=== PATIENT | male | born 1960 | race Caucasian/White ===

== ENCOUNTER → 2017-01-22 | Outpatient (CLI) | payer OTHER ==
[~2017-01-22] VITALS: Ht 185.4 cm; Wt 90.7 kg
[~2017-01-22] MED LIST: BREO1INH INH; LIDOCAINE 2% INJ 100 MG/5 ML SDV (FOR ANES.) As Ordered ONE; NS 1,000 ML IV ONE; OMEP20CA3 PO; PROPOFOL 500 MG/50 ML VIAL As Ordered ONE
--- NOTE | 2017-01-22 09:25 | ROOR ---
Patient Name: Garrison Huynh Procedure Date: 01/22/2017 9:12 AM Date of : 1960 Age: 56 Room: [id number] Gender: Male Note Status: Finalized Procedure: Upper GI endoscopy Indications: Surveillance for malignancy due to personal history of Pan's esophagus, Esophageal reflux Providers: Garrison JJ MD Referring MD: AGUSTÍN NORIEGA MD Requesting Provider: Medicines: Monitored Anesthesia Care Complications: No immediate complications. Procedure: Pre-Anesthesia Assessment: - The heart rate, respiratory rate, oxygen saturations, blood pressure, adequacy of pulmonary ventilation, and response to care were monitored throughout the procedure. The Endoscope was introduced through the mouth, and advanced to the second part of duodenum. The upper GI endoscopy was accomplished without difficulty. The patient tolerated the procedure well. Findings: The Z-line was variable and was found 38 cm from the incisors. This was biopsied with a cold forceps for evaluation to rule out Pan's Esophagus. The exam was otherwise without abnormality. Impression: - Z-line variable, 38 cm from the incisors c/w short segment (<1 cm) barretts esophagus. Biopsied. - The examination was otherwise normal. Recommendation: - Continue present medications. - Repeat upper endoscopy in 3 - 5 years for surveillance. Garrison Jj MD Garrison JJ MD 01/22/2017 9:25:20 AM This report has been signed electronically. Number of Addenda: 0 Note Initiated On: 01/22/2017 9:12 AM Estimated Blood Loss: Estimated blood loss: none.
--- NOTE | 2017-01-22 09:37 | ROOR ---
Patient Name: Garrison Huynh Procedure Date: 01/22/2017 9:13 AM Date of : 1960 Age: 56 Room: [facility] Gender: Male Note Status: Finalized Procedure: Colonoscopy Indications: High risk colon cancer surveillance: Personal history of colonic polyps, Last colonoscopy: September 2014 Providers: Garrison JJ MD Referring MD: AGUSTÍN NORIEGA MD Requesting Provider: Medicines: Monitored Anesthesia Care Complications: No immediate complications. Procedure: Pre-Anesthesia Assessment: - The heart rate, respiratory rate, oxygen saturations, blood pressure, adequacy of pulmonary ventilation, and response to care were monitored throughout the procedure. The Colonoscope was introduced through the anus and advanced to the cecum, identified by appendiceal orifice and ileocecal valve. The colonoscopy was performed without difficulty. The patient tolerated the procedure well. The quality of the bowel preparation was good. Findings: The perianal and digital rectal examinations were normal. A 3 mm polyp was found in the sigmoid colon. The polyp was sessile. The polyp was removed with a cold snare. Resection and retrieval were complete. Multiple medium-mouthed diverticula were found in the sigmoid colon. Small Internal Hemorrhoids. The exam was otherwise without abnormality on direct and retroflexion views. Impression: - One 3 mm polyp in the sigmoid colon, removed with a cold snare. Resected and retrieved. - Mild diverticulosis in the sigmoid colon. - Small Internal Hemorrhoids. - The examination was otherwise normal on direct and retroflexion views. Recommendation: - Repeat colonoscopy in 5 years for surveillance. aGrrison Jj MD Garrison JJ MD 01/22/2017 9:37:08 AM This report has been signed electronically. Number of Addenda: 0 Note Initiated On: 01/22/2017 9:13 AM Estimated Blood Loss: Estimated blood loss: none.
[2017-01-22 09:53] VITALS: BP 128/79
== END ==
LOC: M OPP 08:38
PROVIDERS: ATTEND Internal Medicine Gastroenterology
DX: Z12.11 Encounter for screening for malignant neoplasm of colon (principal); Z86.010 Personal history of colon polyps; D12.5 Benign neoplasm of sigmoid colon; K57.30 Diverticulosis of large intestine without perforation or abscess without bleeding; K64.8 Other hemorrhoids; K22.70 Barrett's esophagus without dysplasia; K21.9 Gastro-esophageal reflux disease without esophagitis; K22.8 Other specified diseases of esophagus; J45.909 Unspecified asthma, uncomplicated; R12 Heartburn; Z79.899 Other long term (current) drug therapy

== ENCOUNTER → 2020-05-29 | Outpatient (CLI) | payer OTHER ==
[~2020-05-29] MED LIST changes: +ALBU8.5H INH; +ATOR40TA75 PO; -LIDOCAINE 2% INJ 100 MG/5 ML SDV (FOR ANES.) As Ordered ONE; +LOSA50TA88 PO; +NIFE30TA50 PO; -NS 1,000 ML IV ONE; +OMEP-218 PO; +OMEP1CAP73 PO; -OMEP20CA3 PO; -PROPOFOL 500 MG/50 ML VIAL As Ordered ONE
== END ==
LOC: M LABSMTC 11:59
PROVIDERS: ATTEND Anesthesiology
DX: Z01.812 Encounter for preprocedural laboratory examination (principal); Z20.828 Contact with and (suspected) exposure to other viral communicable diseases

== ENCOUNTER 2020-06-03 12:28 | Day surgery (SDC) | payer OTHER ==
[~2020-06-03] VITALS: Ht 185.4 cm; Wt 88.9 kg
[~2020-06-03 12:28] MED LIST changes: +LIDOCAINE 2% 100MG/5ML SDV (FOR ANES.) As Ordered ONE; +NS 1,000 ML IV ONE; +propofoL 200 MG/20 ML VIAL As Ordered ONE
[2020-06-03] MEDS ORDERED: propofoL 200 MG/20 ML VIAL As Ordered ONE (14:32)
[2020-06-03 14:37] VITALS: BP 120/64
--- NOTE | 2020-06-03 14:38 | ROOR ---
Patient Name: Garrison Huynh Procedure Date: 06/03/2020 2:22 PM Date of : 1960 Age: 59 Room: [facility] Gender: Male Note Status: Finalized Procedure: Upper GI endoscopy Indications: Surveillance for malignancy due to personal history of Pan's esophagus Providers: Garrison JJ MD Referring MD: AGUSTÍN NORIEGA MD Requesting Provider: Medicines: Monitored Anesthesia Care Complications: No immediate complications. Procedure: Pre-Anesthesia Assessment: - The heart rate, respiratory rate, oxygen saturations, blood pressure, adequacy of pulmonary ventilation, and response to care were monitored throughout the procedure. The Endoscope was introduced through the mouth, and advanced to the second part of duodenum. The upper GI endoscopy was accomplished without difficulty. The patient tolerated the procedure well. Findings: The Z-line was variable and was found 39 cm from the incisors. Biopsies were taken with a cold forceps for histology. Small Hiatal Hernia. The exam was otherwise without abnormality. Impression: - Z-line variable, 39 cm from the incisors. Biopsied. - Small Hiatal Hernia. - The examination was otherwise normal. Recommendation: - Continue present medications. - Telephone endoscopist for pathology results in 2 weeks. - Repeat upper endoscopy for surveillance based on pathology results. Garrison Jj MD Garrison JJ MD 06/03/2020 2:37:21 PM Electronically signed by Garrison JJ MD Number of Addenda: 0 Note Initiated On: 06/03/2020 2:22 PM Estimated Blood Loss: Estimated blood loss: none.
== END 2020-06-03 15:27 | disposition home or self-care (01) ==
LOC: M OPP 12:28
PROVIDERS: ATTEND Internal Medicine Gastroenterology
DX: K22.8 Other specified diseases of esophagus (principal); K21.9 Gastro-esophageal reflux disease without esophagitis; K44.9 Diaphragmatic hernia without obstruction or gangrene; Z79.899 Other long term (current) drug therapy; Z87.891 Personal history of nicotine dependence

== ENCOUNTER → 2023-01-19 | Outpatient (CLI) | payer OTHER ==
[~2023-01-19] MED LIST changes: -LIDOCAINE 2% 100MG/5ML SDV (FOR ANES.) As Ordered ONE; +LOSA50TA28 PO; -LOSA50TA88 PO; -NS 1,000 ML IV ONE; +OMEP-173 PO; -OMEP-218 PO; -propofoL 200 MG/20 ML VIAL As Ordered ONE
[2023-01-19 15:02] LABS: BASO # 0.1 10^3/uL (0.0-0.2); BASO % 0.6 % (0.0-1.0); EOS # 0.3 10^3/uL (0.0-0.5); EOS % 3.2 % (0.0-3.0); HEMATOCRIT 48.3 % (42.0-52.0); HEMOGLOBIN 15.8 g/dl (13.5-17.5); LYMPH # 1.5 10^3/uL (1.5-5.0); LYMPH % 15.3 % (24.0-44.0); MEAN CORPUSCULAR HEMOGLOBIN 31.4 pg (27.0-33.0); MEAN CORPUSCULAR HGB CONC 32.7 g/dl (32.0-36.5); MONO # 0.9 10^3/uL (0.0-0.8); MONO % 9.7 % (2.0-8.0); NEUTROPHILS # 6.8 10^3/uL (1.5-8.5); NEUTROPHILS % 70.8 % (36.0-66.0); PLATELET COUNT, AUTOMATED 257 10^3/uL (150-450); RED BLOOD COUNT 5.03 10^6/uL (4.30-6.10); WHITE BLOOD COUNT 9.6 10^3/uL (4.0-10.0)
[2023-01-19 15:29] LABS: C REACTIVE PROTEIN QUANTITATIV 4.7 MG/DL (<1.0)
[2023-01-19 15:31] LABS: ERYTHROCYTE SEDIMENTATION RATE 39 mm/hr (0-20)
[2023-01-19 15:32] LABS: RHEUMATOID FACTOR QUANT 4.6 IU/ML (<14)
[2023-01-19 15:34] LABS: URIC ACID 5.8 MG/DL (3.7-9.2)
[2023-01-20 13:08] LABS: ANTINUCLEAR ANTIBODIES DIRECT Negative (Negative)
== END ==
LOC: M PLALAB 10:27
PROVIDERS: ATTEND Physician Assistant Surgical
DX: M19.031 Primary osteoarthritis, right wrist (principal)

== ENCOUNTER → 2023-04-29 | Day surgery (SDC) | payer OTHER ==
[~2023-04-29] VITALS: Ht 185.4 cm; Wt 90.7 kg
[~2023-04-29] MED LIST changes: +ADVA230A INH; +ASPI81TA26 PO; +LIDOCAINE 2% 100MG/5ML SDV (FOR ANES.) As Ordered ONE; +NIFE-3 PO; -NIFE30TA50 PO; +NS 1,000 ML IV ONE; +propofoL 200 MG/20 ML VIAL As Ordered ONE
== END | disposition home or self-care (01) ==
LOC: M OPP 09:29
PROVIDERS: ATTEND Internal Medicine Gastroenterology
DX: Z86.010 Personal history of colon polyps (principal); K22.70 Barrett's esophagus without dysplasia; Z53.8 Procedure and treatment not carried out for other reasons

== ENCOUNTER 2023-07-30 12:11 | Day surgery (SDC) | payer OTHER ==
[~2023-07-30] VITALS: Ht 185.4 cm; Wt 88.3 kg
[~2023-07-30 12:11] MED LIST changes: -LIDOCAINE 2% 100MG/5ML SDV (FOR ANES.) As Ordered ONE; -propofoL 200 MG/20 ML VIAL As Ordered ONE
[2023-07-30] MEDS ORDERED: propofoL 500 MG/50 ML VIAL As Ordered ONE (13:15)
[2023-07-30] MEDS ORDERED: LIDOCAINE 2% 100MG/5ML SDV (FOR ANES.) As Ordered ONE (13:15)
[2023-07-30] MEDS ORDERED: fentaNYL 100 MCG/2 ML INJECTION As Ordered ONE (13:19)
[2023-07-30 14:37] VITALS: TEMP 97.7
[2023-07-30 14:55] VITALS: BP 132/81; O2SAT 97
== END 2023-07-30 14:59 | disposition home or self-care (01) ==
LOC: M OPP 12:11
PROVIDERS: ATTEND Internal Medicine Gastroenterology
DX: Z12.11 Encounter for screening for malignant neoplasm of colon (principal); D12.0 Benign neoplasm of cecum; K22.70 Barrett's esophagus without dysplasia; K57.30 Diverticulosis of large intestine without perforation or abscess without bleeding; K29.50 Unspecified chronic gastritis without bleeding; K44.9 Diaphragmatic hernia without obstruction or gangrene; K21.9 Gastro-esophageal reflux disease without esophagitis; Z86.010 Personal history of colon polyps; I25.10 Atherosclerotic heart disease of native coronary artery without angina pectoris; I25.2 Old myocardial infarction; I10 Essential (primary) hypertension; Z79.899 Other long term (current) drug therapy; Z79.82 Long term (current) use of aspirin; J44.9 Chronic obstructive pulmonary disease, unspecified; Z88.6 Allergy status to analgesic agent
CPT/HCPCS: 43239; 45385; 88305; J3010